=== PATIENT | female | born 2000 | race Hispanic/Latino ===

== ENCOUNTER 2020-09-13 13:45 | Emergency (ER) | payer OTHER ==
[~2020-09-13] VITALS: Ht 154.9 cm; Wt 59.8 kg
[2020-09-13 14:21] LABS: BASO % 0.5 % (0.0-1.0); EOS # 0.1 10^3/uL (0.0-0.5); EOS % 0.9 % (0.0-3.0); HEMATOCRIT 43.5 % (36.0-47.0); HEMOGLOBIN 13.9 g/dl (12.0-15.5); LYMPH # 2.9 10^3/uL (1.5-5.0); LYMPH % 36.3 % (24.0-44.0); MEAN CORPUSCULAR HEMOGLOBIN 27.1 pg (27.0-33.0); MEAN CORPUSCULAR VOLUME 84.8 fl (80.0-96.0); MONO # 0.5 10^3/uL (0.0-0.8); MONO % 6.2 % (0.0-5.0); NEUTROPHILS # 4.5 10^3/uL (1.5-8.5); NEUTROPHILS % 55.9 % (36.0-66.0); PLATELET COUNT, AUTOMATED 333 10^3/uL (150-450); RED BLOOD COUNT 5.13 10^6/uL (4.00-5.40)
--- NOTE | 2020-09-13 15:41 | REP ---
INDICATION: /bleeding. COMPARISON: None. TECHNIQUE: Real-time sonographic evaluation of pelvis performed utilizing transabdominal and endovaginal technique. FINDINGS: Uterus measures 6.0 x 2.9 x 3.6 cm. Endometrial thickness is 3 mm. There is no new medial fluid collection or gestational sac visualized. The ovaries are normal in size and echotexture, right ovary measuring 2.4 x 2.0 x 2.9 cm and left ovary 2.9 x 1.1 x 2.8 cm. Blood flow is seen in each ovary with duplex Doppler evaluation, with no torsion. There is no adnexal mass or free fluid. IMPRESSION: Reportedly beta HCG is 43. The uterus is empty with no fluid collection or gestational sac. There is no evidence of adnexal mass, free fluid or torsion. Differential diagnosis would include missed AB, very early intrauterine , and ectopic is not excluded. Recommend correlation with serial quantitative beta HCG values, and follow-up ultrasound as necessary. <Electronically signed by Peterson Sorto > 09/13/20 [id number]
[2020-09-13 16:16] VITALS: BP 126/74
== END 2020-09-13 16:18 | disposition home or self-care (01) ==
LOC: M ED 13:45
DX: O20.0 Threatened abortion (principal); O36.80X1 Pregnancy with inconclusive fetal viability, fetus 1; Z3A.00 Weeks of gestation of pregnancy not specified

== ENCOUNTER → 2020-09-15 | Outpatient (CLI) | payer OTHER | LOC: M LAB 10:57 | PROVIDERS: ATTEND Physician Assistant | DX: O20.9 Hemorrhage in early pregnancy, unspecified (principal) ==

== ENCOUNTER → 2020-10-21 | Outpatient (CLI) | payer OTHER ==
--- NOTE | 2020-10-21 10:36 | REP ---
INDICATION: PREG, VIABILITY, INCONCLUSIVE SCAN IN OFFICE COMPARISON: None. TECHNIQUE: Transabdominal and transvaginal 1st trimester obstetrical ultrasound with color Doppler evaluation. FINDINGS: Anteverted uterus measures 6.5 x 3.3 x 5.0 cm. The endometrial complex measures 8 mm thickness. No intrauterine or decidual reaction noted. No significant endocervical fluid or hemorrhage identified. Bilateral ovaries are normal in appearance and vascularity without torsion. Right ovary measures 2.7 x 1.5 x 1.5 cm (RI 0.57). Left ovary measures 3.5 x 2.2 x 3.0 cm and includes 2.8 cm complex likely physiologic cyst (RI 0.49). No pelvic free fluid or adnexal mass lesion. IMPRESSION: No intrauterine . Differential diagnosis includes missed spontaneous and less likely early and or ectopic . <Electronically signed by Nura Haynes > 10/21/20 1031
== END ==
LOC: M RAD 09:51
PROVIDERS: ATTEND Registered Nurse Maternal Newborn
DX: Z34.91 Encounter for supervision of normal pregnancy, unspecified, first trimester (principal); Z3A.00 Weeks of gestation of pregnancy not specified